=== PATIENT | male | born 1995 | race African-American/Black ===

== ENCOUNTER 2018-02-24 00:09 | Emergency (ER) | payer OTHER ==
[~2018-02-24] VITALS: Ht 182.9 cm; Wt 81.6 kg
[2018-02-24] MEDS ORDERED: LEVSIN/SL0.125 MG SL (06:27)
== END 2018-02-24 06:42 | disposition home or self-care (01) ==
LOC: ER 00:09
DX: R10.31 Right lower quadrant pain (principal)

== ENCOUNTER → 2018-11-23 | Emergency (ER) | payer OTHER ==
[~2018-11-23] VITALS: Ht 177.8 cm; Wt 85.3 kg
[~2018-11-23] MED LIST: DOLOGESIC 500-1 EACH PO; LEVSIN/SL0.125 MG SL
== END | disposition home or self-care (01) ==
LOC: ER 22:03
DX: B34.9 Viral infection, unspecified (principal)

== ENCOUNTER 2023-12-21 00:05 | Emergency (ER) | payer OTHER ==
[~2023-12-21] VITALS: Ht 182.9 cm; Wt 97.5 kg
[2023-12-21 00:23] VITALS: BP 111/68; O2SAT 97
== END 2023-12-21 03:34 | disposition home or self-care (01) ==
LOC: ER 00:07
DX: M43.6 Torticollis (principal)